=== PATIENT | male | born 2000 | race African-American/Black ===

== ENCOUNTER 2021-02-17 20:54 | Emergency (ER) | payer BC, SELFPAY ==
[2021-02-17 21:49] VITALS: BP 123/78; PULSE 54; RESP 18; TEMP 36.9; O2SAT 99; BMI 20.3
--- NOTE | 2021-02-17 23:41 | ED_ITS ---
HPI - Nausea/Vomiting/Diarrhea General: Chief complaint: Nausea/Vomiting/Diarrhea Stated complaint: Sore Throat Diahrea Time Seen by Provider: 02/17/21 23:41 History of Present Illness: HPI Narrative: 20-year-old male patient comes in today with complaints of sore throat and diarrhea. Patient reports that started this afternoon. Patient appears well. Patient appears in no acute distress. Review of Systems General: Reports: 10 or more systems reviewed and unremarkable except in HPI and below ENMT: Reports: throat pain GI: Reports: diarrhea Physical Exam Const: COMMON NORMALS: no acute distress and patient oriented x3 GENERAL APPEARANCE: cooperative HENMT: COMMON NORMALS: normocephalic, TM's normal bilaterally and Normal external nose present HEAD & SCALP: normal to inspection and normocephalic NOSE: Normal external nose present TYMPANIC MEMBRANE: TM's normal bilaterally MOUTH: Normal oral and palatal mucosa present THROAT: posterior oropharynx normal Eye: GENERAL EYE: appearance normal, both eyes and all related structures Neck/C-Spine: COMMON NORMALS: full ROM Lymph: LYMPHATIC: no lymphadenopathy noted Chest: COMMONS NORMALS: normal inspection of the chest Resp: COMMON NORMALS: normal respiratory effort EFFORT & INSPECTION: Yes able to speak in complete sentences Cardio: COMMON NORMALS: regular rate and regular rhythm RATE: regular rate RHYTHM: regular rhythm GI: COMMON NORMALS: non-tender : COMMON NORMALS: Yes no CVA tenderness BLADDER/KIDNEY EXAM: Yes no CVA tenderness Back/Pelvis: COMMON NORMALS: no CVA tenderness and thoracic and lumbar spine normal to inspection Extremity: COMMON NORMALS: normal to inspection Neuro: COMMON NORMALS: patient oriented x3 and moves all extremities Psych: COMMON NORMALS: mental status grossly normal and cooperative Skin: COMMON NORMALS: no rashes or lesions noted GENERAL SKIN EXAM: no rashes or lesions noted Course Vital Signs: Vital signs: Vital Signs Temperature 98.5 F 02/17/21 21:49 Pulse Rate 60 02/18/21 00:04 Respiratory Rate 18 02/18/21 00:04 Blood Pressure 133/100 02/18/21 00:04 Pulse Oximetry 99 02/18/21 00:04 MDM - Nausea/Vomiting/Diarrhea MDM Narrative: Medical decision making narrative: Patient comes in today with complaints of sore throat and diarrhea. On exam we note some mild erythema to the posterior pharynx, abdomen soft nontender. Bowel sounds are normal. Vital signs are normal. Differential diagnosis includes but not limited to strep pharyngitis, viral syndrome, gastroenteritis. Strep test was negative. Patient appears well. Recommend lots of fluids and plenty of rest light diet increase as tolerated. Patient reported understanding and agreed to plan. Lab Data: Labs: Lab Results 02/17/21 21:58 Group A Strep Rapi d Negative (Negative) Discharge Plan Discharge Patient Disposition: Home Clinical Impression: Viral syndrome Condition: Stable Discharge Orders: Discharge ED (Routine); Ordered 02/18/21 Ordered By: Georgi Barfield Discharge Diet: Usual diet Discharge Activity: Increase activity as tolerated Patient Instructions: Gastroenteritis (ED), Opioid Safety Activity Restrictions/Additional Instructions: Drink plenty of fluids. Acetaminophen or ibuprofen for pain and discomfort. Monitor for high fever greater than 100.4, inability to hold any fluids down, an d blood in vomit or stool. Return to the ER for worsening symptoms or new concerns. Follow-up with primary care as needed. Stand Alone Forms: Work/School Release Coding Level of Care Code ED Supervisor Patching for [employer]
[2021-02-18 00:04] VITALS: BP 133/100; PULSE 60; RESP 18; O2SAT 99
[2021-02-18 00:16] LABS: Rapid Strep A Test Negative (Negative)
[2021-02-18 00:42] VITALS: BP 133/100; PULSE 58; RESP 16; O2SAT 98
== END 2021-02-18 00:43 | disposition home or self-care (01) ==
PROVIDERS: Emergency Medicine; Emergency Provider Nurse Practitioner Family
DX: B34.9 Viral infection, unspecified (principal)
CPT/HCPCS: 87081; 87880; 99282

== ENCOUNTER 2021-07-30 14:57 | Emergency (ER) | payer BC, OTHER, SELFPAY ==
[2021-07-30 15:06] VITALS: BP 139/87; PULSE 75; RESP 18; TEMP 36.8; O2SAT 98
--- NOTE | 2021-07-30 15:15 | W.ED.CHESTPA ---
HPI - Chest Pain General: Chief Complaint: Chest Pain Stated Complaint: CP Time Seen by Provider: 07/30/21 15:14 History of Present Illness: Mr. Atkinson is a 20-year-old gentleman with history of CATARINO who presents emergency department due to chest discomfort. He reports 4-day history of a uncomfortable feeling in his chest which she describes as like a hiccup. Symptoms are worse at night in the evening and when he is trying to sleep. It does interrupt his sleep. Intensity of symptoms is moderate. Course has persisted. No other typical cardiac features associated with this. No infectious symptoms. He denies known specific provoking factors such as increased stress or caffeine intake. He does have a history of CATARINO however is not been on CPAP due to insurance issues. He has a history of tobaccoism and does endorse positive family history for early cardiac disease though no sudden cardiac in very young family members reported. Timing of current episode: episodic Onset: during rest Pain location: substernal and left chest Severity: moderate Quality: other Review of Systems General: Reports: 10 or more systems reviewed and unremarkable except in HPI and below PFSH ED PFSH: Medical History CATARINO (obstructive sleep apnea) Social History Smoking and tobacco status: current every day smoker Physical Exam Const: COMMON NORMALS: alert GENERAL APPEARANCE: cooperative and well developed HENMT: COMMON NORMALS: normocephalic and atraumatic HEAD & SCALP: normocephalic and atraumatic Eye: COMMON NORMALS: conjunctivae normal CONJUNCTIVA: Yes conjunctivae normal SCLERA: sclerae normal Neck/C-Spine: COMMON NORMALS: supple GENERAL: Yes trachea midline Resp: COMMON NORMALS: normal respiratory effort and clear to auscultation bilaterally EFFORT & INSPECTION: Yes able to speak in complete sentences AUSCULTATION: clear to auscultation bilaterally Cardio: COMMON NORMALS: regular rate and regular rhythm RATE: regular rate RHYTHM: regular rhythm GI: COMMON NORMALS: Soft to palpation PALPATION: Yes Soft to palpation and No Tenderness to palpation present (GI) PERCUSSION: normal to percussion Extremity: GENERAL: Yes normal exam except as noted and No edema Neuro: COMMON NORMALS: moves all extremities SENSORIUM/ORIENTATION: Yes alert and No Orientation impaired Psych: COMMON NORMALS: mental status grossly normal and Normal thought process present THOUGHT PROCESS: Normal thought process present Course ED course: - Patient was seen and evaluated by me at bedside - Patient placed on cardiac monitors, IV access obtained - Initial evaluation notable for exam as above - Labs notable for no leukocytosis. Metabolic panel without acute derangement. Troponin is negative with greater than 6 hours symptoms. - Imaging notable for negative chest x-ray - Upon serial reexamination after treatment the patient was similar to improved - Based on patient history, evaluation, labs, and imaging as interpreted the most likely cause of the patient's condition is chest pain of uncertain etiology - The results of ED evaluation were discussed with the patient including prescriptions and/or symptomatic cares (if applicable) including appropriate and responsible use, followup plan, and return precautions. The patient verbalized understanding and felt safe for discharge. - Patient discharged in satisfactory condition. Note: Click bubbles or prepopulated montes in note writing are used for assistance with data collection and billing and are inherently more limited than narrative and other text portions of this note. Please use narrative for additional clinical history and defer to narrative/free test for any case of contradictory information. If information appears in only free text or click bubble it should be considered present or absent as reported. Please contact note commercial loan underwriter for clarifications of clinical information or contradictory information. MDM is a brief summary, contradictory or erroneous seeming information should be clarified and full note should be reviewed. Vital Signs: Vital signs: Vital Signs Temperature 97.9 F 07/30/21 17:48 Pulse Rate 76 07/30/21 17:48 Respiratory Rate 16 07/30/21 17:48 Blood Pressure 130/73 07/30/21 17:48 Pulse Oximetry 96 07/30/21 17:48 MDM - Chest Pain Medical Decision Making 20-year-old male presenting to the emergency department due to 4-day history of chest discomfort. Negative ED evaluation for obvious cause. Low risk by heart score. Satisfactory for outpatient management and follow-up. Medical Records I reviewed the patient's medical records. Lab Data I reviewed the patient's lab results. : 07/30/21 15:35 07/30/21 16:30 Radiology Impressions Chest X-Ray 07/30/21 15:29 IMPRESSION: No acute findings. Laboratory Results WBC 6.7 10^3/uL (4.5-13.0) 07/30/21 15:35 RBC 5.62 10^6/uL (4.1-5.3) H 07/30/21 15:35 Hgb 14.5 g/dL (11.7-16.6) 07/30/21 15:35 Hct 45.2 % (42.0-52.0) 07/30/21 15:35 MCV 80.4 fl (80-94) 07/30/21 15: MCH 25.8 pg (28.0-34.0) L 07/30/21 15:35 MCHC 32.1 g/dL (30.0-36.0) 07/30/21 15: RDW 12.2 % (12.1-15.1) 07/30/21 15: Plt Count 172 10^3/cmm (130-400) 07/30/21 15:35 MPV 11.5 fL (7.4-10.4) H 07/30/21 15:35 Neut % (Auto) 77.6 % 07/30/21:35 Lymph % (Auto) 14.1 % 07/30/21 15:35 Leake % (Auto) 6.4 % 07/30/21 15:35 Eos % (Auto) 1.2 % 07/30/21 15:35 Baso % (Auto) 0.4 % 07/30/21 15:35 Neut # (Auto) 5.19 10^3/uL (1.8-8.0) 07/30/21 15:35 Lymph # (Auto) 0.9 10^3/uL (1.5-6.5) L 07/30/21 15:35 Leake # (Auto) 0.4 10^3/uL (0.2-0.9) 07/30/21 15:35 Eos # (Auto) 0.1 10^3/uL (0.0-0.8) 07/30/21 15:35 Baso # (Auto) 0.0 10^3/uL (0.0-0.1) 07/30/21 15:35 Nucleated RBC % (auto) 0 % 07/30/21: Nucleated RBCs # 0.0 /100WBC 07/30/21 15: Sodium 136 mmol/L (136-145) 07/30/21 16:30 Potassium 4.0 mmol/L (3.5-5.1) 07/30/21 16:30 Chloride 98 mmol/L (98-107) 07/30/21 16:30 Carbon Dioxide 28 mmol/L (22-29) 07/30/21 16:30 Anion Gap 14.0 (5-19) 07/30/21 16:30 BUN 13 mg/dL (6-20) 07/30/21 16:30 Creatinine 1.0 mg/dL (0.7-1.2) 07/30/21 16:30 GFR Calculation 115.3 mL/min (90-130) 07/30/21 16:30 Glucose 94 mg/dL (65-115) 07/30/21 16:30 Calculated Osmolality 282 mOsm/kg (285-295) L 07/30/21 16:30 Calcium 9.0 mg/dL (8.5-10.5) 07/30/21 16:30 Total Bilirubin 0.8 mg/dL (0.15-1.2) 07/30/21 16:30 AST 21 U/L (0-40) 07/30/21 16:30 ALT 16 U/L (0-41) 07/30/21 16:30 Alkaline Phosphatase 81 IU/L (40-130) 07/30/21 16:30 Troponin T Baseline 11 ng/L (0-15) 07/30/21 16:30 Total Protein 7.3 g/dL (6.6-8.7) 07/30/21 16:30 Albumin 4.8 g/dL (3.5-5.2) 07/30/21 16:30 Globulin 2.5 g/dL (1.3-4.6) 07/30/21 16:30 Lipase 24 U/L (13-60) 07/30/21 16:30 TSH 0.59 uIU/mL (0.27-4.20) 07/30/21 16:30 EKG Data EKG 1: I personally reviewed and interpreted this EKG as follows: EKG interpretation date: 07/30/21 EKG interpretation time: 15:22 Interpretation: Twelve-lead EKG shows a regular rhythm at a rate of 71. MA interval 140, castration 85, QTc 382. Normal axis. Interpretation: Sinus rhythm. Discharge Plan Discharge Patient Disposition: Home Clinical Impression: Chest pain Condition: Stable Prescriptions: New Protonix 40 mg tablet,delayed release (DR/EC) 40 mg PO DAILY Qty: 30 0RF Discharge Orders: Discharge ED (Routine); Ordered 07/30/21 Ordered By: Jarod Alejo Discharge Diet: Usual diet Discharge Activity: Resume usual activity Patient Instructions: Chest Pain (ED) Activity Restrictions/Additional Instructions: Thank you for visiting the emergency department. You were seen and evaluated for chest pain. The exact cause of your symptoms is unclear. There are no significant abnormalities identified on CBC, CMP, TSH, or cardiac troponin. It is possible that some of the symptoms are related to GERD. Additionally I do recommend trying to get back on a CPAP machine as sleep apnea can also cause the sort of symptoms. Please follow-up with your primary care provider. Please return to the emergency department for worsening symptoms or anything else that you are concerned about and feel needs emergency department evaluation. Coding Level of Care Code ED Sr. Media Manager for [employer] Exam Comprehensive
--- NOTE | 2021-07-30 15:29 | XRR_ITS ---
PROCEDURE INFORMATION: Exam: XR Chest Exam date and time: 07/30/2021 3:29 PM Age: 20 years old Clinical indication: Pain; Chest pressure; Additional info: Chest pain TECHNIQUE: Imaging protocol: XR of the chest. Views: 1 view. COMPARISON: No relevant prior studies available. FINDINGS: Lungs: Unremarkable. No consolidation. Pleural spaces: Unremarkable. No pleural effusion. No pneumothorax. Heart/Mediastinum: Unremarkable. No cardiomegaly. Bones/joints: Unremarkable. XR/XR chest 1V portable [id number] IMPRESSION: No acute findings.
--- NOTE | 2021-07-30 15:30 | ECG_ITS ---
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 Measurements Intervals [place] Rate: 71 P: 64 MO: 140 QRS: 87 QRSD: 85 T: 71 QT: 360 QTc: 391 Interpretive Statements SINUS RHYTHM No previous ECG available for comparison Electronically Signed On 07-30-2021 15:37:55 CDT by Lico Cuevas M.D. [email or web address]
[2021-07-30 16:16] LABS: Basophils % 0.4 %; Eosinophils # 0.1 10^3/uL (0.0-0.8); Eosinophils % 1.2 %; Hematocrit 45.2 % (42.0-52.0); Hemoglobin 14.5 g/dL (11.7-16.6); Lymphocytes # 0.9 10^3/uL (1.5-6.5); Lymphocytes % 14.1 %; Mean Corpuscular HGB Conc 32.1 g/dL (30.0-36.0); Mean Corpuscular Hemoglobin 25.8 pg (28.0-34.0); Mean Corpuscular Volume 80.4 fl (80-94); Mean Platelet Volume 11.5 fL (7.4-10.4); Monocytes # 0.4 10^3/uL (0.2-0.9); Monocytes % 6.4 %; Neutrophils # 5.19 10^3/uL (1.8-8.0); Neutrophils % 77.6 %; Nucleated Red Blood Cells % 0 %; Platelet Count 172 10^3/cmm (130-400); Red Blood Count 5.62 10^6/uL (4.1-5.3); Red Cell Distribution Width 12.2 % (12.1-15.1); White Blood Count 6.7 10^3/uL (4.5-13.0)
[2021-07-30 16:59] LABS: Troponin(5th) Baseline 11 ng/L (0-15)
[2021-07-30 17:04] LABS: Alanine Aminotransferase 16 U/L (0-41); Albumin Level 4.8 g/dL (3.5-5.2); Alkaline Phosphatase 81 IU/L (40-130); Aspartate Amino Transferase 21 U/L (0-40); Blood Urea Nitrogen 13 mg/dL (6-20); Carbon Dioxide 28 mmol/L (22-29); Chloride 98 mmol/L (98-107); Globulin 2.5 g/dL (1.3-4.6); Glomerular Filtration Rate 115.3 mL/min (90-130); Glucose 94 mg/dL (65-115); Lipase 24 U/L (13-60); Osmolality Calculated 282 mOsm/kg (285-295); Sodium 136 mmol/L (136-145); Thyroid Stimulating Hormone 0.59 uIU/mL (0.27-4.20); Total Bilirubin 0.8 mg/dL (0.15-1.2); Total Protein 7.3 g/dL (6.6-8.7)
[2021-07-30 17:47] VITALS: BP 130/73; PULSE 76; RESP 16; TEMP 36.6; O2SAT 96
[2021-07-30 17:48] VITALS: BP 130/73; PULSE 76; RESP 16; TEMP 36.6; O2SAT 96
== END 2021-07-30 17:50 | disposition home or self-care (01) ==
PROVIDERS: Emergency Provider Emergency Medicine
DX: R07.9 Chest pain, unspecified (principal); F17.210 Nicotine dependence, cigarettes, uncomplicated
CPT/HCPCS: 71045; 80053; 83690; 84443; 84484; 85025; 93005; 99283